=== PATIENT | female | born 1935 | race Caucasian/White ===

== ENCOUNTER 2018-09-03 14:36 | Outpatient (CLI) | payer MEDICARE ==
--- NOTE | 2018-09-03 16:29 | RAD ---
TWO VIEWS RIGHT HIP: 09/03/18 INDICATION: Fall with right sided hip pain and low back pain. FINDINGS: No acute fracture or subluxation is evident. 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 T here are vascular calcifications involving the right hemipelvis and right proximal thigh. There is di ffuse osteopenia. IMPRESSION: No acute osseous abnormality. POS: [facility]
--- NOTE | 2018-09-03 16:55 | RAD ---
LUMBAR SPINE THREE VIEWS: 09/03/18 INDICATION: History of fall with low back pain. FINDINGS: There is age indeterminate superior end plate compression fracture of L4 and T12. There is superior and inferior end plate compression abnormalities involving L1 of indeterminate chronicity. There is a dvanced disc degenerative disease at L2-3. There is moderate disc degenerative disease at L4-5. There is diffuse osteopenia. There is scattered vascular calcification. There is surgical clips in the rig ht upper quadrant may reflect sequela of prior cholecystectomy. IMPRESSION: 1. Age indeterminate compression abnormalities of L4, L1 and T12. Comparison with prior radiogr aphs may be helpful to evaluate for acuity. Alternatively, a bone scan may be helpful for additional characterization. 2. Moderate spondylosis of the lumbar spine. 3. Diffuse osteopenia. POS: [facility]
== END 2018-09-03 14:37 | disposition home or self-care (01) ==
LOC: SCSRAD 14:36
PROVIDERS: ATTEND Nurse Practitioner Family
DX: M54.5 Low back pain (principal); M47.816 Spondylosis without myelopathy or radiculopathy, lumbar region; W19.XXXA Unspecified fall, initial encounter; M85.80 Other specified disorders of bone density and structure, unspecified site
CPT/HCPCS: 72100

== ENCOUNTER 2018-10-02 14:31 | Outpatient (CLI) | payer MEDICARE ==
--- NOTE | 2018-10-02 15:56 | MRI ---
EXAM: MRI lumbar spine without contrast HISTORY: Recent fall with compression fracture seen on x-ray COMPARISON: Lumbar radiographs 09/20/2018 TECHNIQUE: Multiple planar multisequence MR images were obtained of the lumbar spine without contrast . FINDINGS: There is a compression fracture of L1 with approximately 50% height loss. This vertebral body demonst rates abnormal high T2 signal consistent with an acute fracture. Wedge compression deformity of the T12 and L4 vertebral bodies does not demonstrate high T2 signal in these fractures are likely chronic . Innumerable cysts are seen in the kidneys. The paraspinal soft tissues are unremarkable. The conus medullaris terminates normally at T12. T12/L1: A small disc osteophyte complex is seen. No posterior facet arthrosis. No central canal ute nosis. No neural foraminal stenosis L1/2: A small disc osteophyte complex is seen. No posterior facet arthrosis. Mild central canal ute nosis. Mild left neural foraminal stenosis L2/3: A small disc osteophyte complex is seen. No posterior facet arthrosis. Mild central canal ute nosis. Mild bilateral neural foraminal stenosis L3/4: A small disc osteophyte complex is seen. Mild bilateral posterior facet arthrosis. Mild centr al canal stenosis. Mild bilateral neural foraminal stenosis L4/5: A minimal disc osteophyte complex is seen. Moderate bilateral posterior facet arthrosis. No c entral canal stenosis. Mild bilateral neural foraminal stenosis L5/S1: No significant posterior bulge or protrusion. Moderate bilateral posterior facet arthrosis. No central canal stenosis. No neural foraminal stenosis IMPRESSION: 1. Acute L1 compression fracture as above 2. Degenerative changes of the lumbar spine as above.
== END 2018-10-02 14:32 | disposition home or self-care (01) ==
LOC: SCSMRI 14:31
PROVIDERS: ATTEND Nurse Practitioner Family
DX: S32.040A Wedge compression fracture of fourth lumbar vertebra, initial encounter for closed fracture (principal); S32.010A Wedge compression fracture of first lumbar vertebra, initial encounter for closed fracture; M47.816 Spondylosis without myelopathy or radiculopathy, lumbar region
CPT/HCPCS: 72148

== ENCOUNTER 2018-10-09 16:11 | Outpatient (CLI) | payer MEDICARE ==
--- NOTE | 2018-10-09 18:05 | CT ---
CT PELVIS: 10/09/18 INDICATION: Sacral insufficiency fracture, pain. FINDINGS: Subtle sclerosis does traverse the midline of the sacrum without significant displacement. The sacral neural foramina are grossly intact. No abnormal diastasis of sacroiliac joints. Mild osteophytosis o f each SI joint is present. There is incidental note of a moderate facet arthropathy of the lower lum bar spine. Chronic appearing end plate irregularity with associated gas vacuum phenomenon seen at L4 -5 level. IMPRESSION: Subtle sclerosis of the sacrum without displacement that could relate to a nondisplaced insufficiency fracture given the clinical concern. This may be further evaluated with bone scan. POS: [facility]
== END 2018-10-09 16:12 | disposition home or self-care (01) ==
LOC: SCSCT 16:11
PROVIDERS: ATTEND Specialist
DX: M84.48XA Pathological fracture, other site, initial encounter for fracture (principal); G95.89 Other specified diseases of spinal cord
CPT/HCPCS: 72192

== ENCOUNTER 2019-05-01 15:18 | Outpatient (CLI) | payer MEDICARE ==
--- NOTE | 2019-05-01 18:19 | RAD ---
THORACIC SPINE: 05/01/19 Three views. INDICATIONS: Back pain. COMPARISON: Comparison made to a thoracic spine films of 09/20/18. The prior exams described T12 and L1 fractures. There is now vertebroplasty changes at L1. There is m ild compression of the T12 vertebra which appears stable from prior exam with primarily central compr ession. There is mild anterior wedging of upper thoracic vertebrae at T7, T6 and T5 levels which appears stab le and physiologic. Very mild degenerative spurring. IMPRESSION: Mild central compression of T12 appears stable. Thoracic spine is otherwise unremarkable and unchange d. POS: [facility]
== END 2019-05-01 15:19 | disposition home or self-care (01) ==
LOC: SCSRAD 15:18
PROVIDERS: ATTEND Family Medicine
DX: M54.6 Pain in thoracic spine (principal)
CPT/HCPCS: 72072; 72100

== ENCOUNTER 2019-10-01 14:34 | Outpatient (CLI) | payer MEDICARE ==
--- NOTE | 2019-10-01 16:08 | RAD ---
LUMBAR SPINE TWO VIEWS: 10/01/19 HISTORY: Low back pain. Fell last week. COMPARISON: 08/12/19 FINDINGS/IMPRESSION: Vertebroplasty changes involving the compression fracture of L1 vertebral bodies again seen. Interim changes of vertebroplasty are noted at L3 and L5 levels. Compression fracture of L4 remains s table. No subluxation is seen. There are vascular calcifications. Compression of the superior end charm[place] te of T12 is stable. POS: [facility]
== END 2019-10-01 14:35 | disposition home or self-care (01) ==
LOC: SCSRAD 14:34
PROVIDERS: ATTEND Family Medicine
DX: M54.5 Low back pain (principal); S32.019A Unspecified fracture of first lumbar vertebra, initial encounter for closed fracture; I70.90 Unspecified atherosclerosis
CPT/HCPCS: 72100

== ENCOUNTER 2019-10-24 14:02 | Outpatient (CLI) | payer MEDICARE ==
--- NOTE | 2019-10-21 14:34 | CT ---
CT Pelvis WO Con History: Pelvic pain. Evaluate for sacral fracture Comparison: CT of the pelvis 2019 Findings: Faint sclerosis of S3 from healed fracture. Complete new transverse fracture of S4 with one cortex width anterior displacement. Along the inferior margin of S4 is another transversely oriented fracture with anterior displacement 4 mm. This is new. Cement within L3 and L5. Compression fracture L4 is similar. No SI joint widening. The femoral heads and necks are intact. Acetabulum are intact. No free fluid within the pelvis. Polycystic kidneys. High-grade vascular calcifications. Impression: Two new complete transverse oblique S4 fractures as described with anterior displacement of the inferior fracture approximately 4 mm.
--- NOTE | 2019-10-24 15:15 | MRI ---
MRI Lumbar Spine WO Con History: Pain. Fractures. Comparison: Radiograph 09/11/2019. Radiograph 08/12/2019. MRI 08/20/2019 Findings: Multicystic kidneys. Aortic contour is nonaneurysmal. Moderate bilateral symmetric paraspin al muscle atrophy. New inferior endplate compression deformity at T11 with 10% inferior endplate height loss. Similar ap pearance of the superior endplate compression deformity and anterior endplate deformity of T12 with minimal new inferior endplate edema. Unchanged fracture of L1 contains cement. New superior endplate compression deformity of L2 with 10% anterior height loss, 5% posterior height loss, and endplate compression of 20%. Progressive height loss of the L2/L3 disc space. The L3 fracture contains new cement. Similar height loss of L4. The L5 fracture contains new cement. There is no abnormal placement or extruded cement appreciated. Impression: 1. New inferior endplate compression fracture of T11 with 10% inferior endplate height loss. 2. New compressive edema of the inferior endplate of T12 with minimal height loss. 3. New superior endplate compression deformity of L2 with 10%anterior, 5% posterior and mid endplate compression 20%. 4. Progressive height loss of the L2/L3 disc space. 5. No extruded new cement within the L3 or L5 vertebral bodies.
== END 2019-10-24 14:03 | disposition home or self-care (01) ==
LOC: SCSCT 14:02
PROVIDERS: ATTEND Nurse Practitioner Family
DX: S32.010A Wedge compression fracture of first lumbar vertebra, initial encounter for closed fracture (principal); M53.3 Sacrococcygeal disorders, not elsewhere classified; S32.10XA Unspecified fracture of sacrum, initial encounter for closed fracture; S22.089A Unspecified fracture of T11-T12 vertebra, initial encounter for closed fracture; M43.8X6 Other specified deforming dorsopathies, lumbar region
CPT/HCPCS: 72148; 72192

== ENCOUNTER 2021-01-25 15:00 | Outpatient (CLI) | payer MEDICARE | END 2021-01-25 15:01 | disposition home or self-care (01) | LOC: SCSRAD 15:00 | PROVIDERS: ATTEND Nurse Practitioner Family | DX: M54.6 Pain in thoracic spine (principal) | CPT/HCPCS: 72072 ==

== ENCOUNTER 2021-03-10 11:38 | Observation (INO) | payer MEDICARE ==
[2021-03-10 12:47] LABS: Hemoglobin 13.2 g/dL (12.0-16.0); Mean Corpuscular HGB CONC 32.6 g/dL (32.0-36.0); Mean Corpuscular Hemoglobin 33.3 pg (27.0-31.0); Mean Platelet Volume 9.7 fL (7.4-10.4); Platelet Count 275 thou/uL (130-400); RBC Distribution Width 15.6 % (11.5-14.5); Red Blood Cell (RBC) Count 3.96 mill/uL (4.20-5.40); White Blood Cell (WBC) Count 11.5 thou/uL (4.8-10.8)
[2021-03-10 12:48] LABS: #Basophils 0.1 thou/uL (0.0-0.2); #Eosinphils 0.2 thou/uL (0.0-0.7); #Lymphocytes 1.1 thou/uL (1.20-3.40); #Monocytes 0.3 thou/uL (0.11-0.59); #Neutrophils 9.9 thou/uL (1.40-6.50); %Basophils 0.5 % (0.0-1.0); %Eosinophils 1.9 % (0.0-10.0); %Lymphocytes 9.2 % (21.0-51.0); %Monocytes 2.4 % (0.0-10.0); INR-International Normal Ratio 1.2; Platelet Morphology Comment Appears Adequate; Prothrombin Time 15.3 sec (12.0-14.7)
[2021-03-10 12:49] LABS: PTT 36.5 sec (22.9-36.1)
[2021-03-10 13:00] LABS: ALT (SGPT) 8 U/L (8-55); AST (SGOT) 12 U/L (5-34); Albumin 4.1 g/dL (3.4-4.8); Alkaline Phosphatase 89 U/L (40-110); Anion Gap 12 mmol/L (10-20); BUN (Urea Nitrogen) 20 mg/dL (9.8-20.1); Bilirubin, Total 0.8 mg/dL (0.2-1.2); Calc. Creatinine Clearance 0 mL/min (70-130); Carbon Dioxide 25 mmol/L (23-31); Chloride 106 mmol/L (98-107); Globulin 3.4 g/dL (2.4-3.5); Glucose 98 mg/dL (83-110); Lipase 34 U/L (8-78); Protein, Total 7.5 g/dL (5.8-8.1); Sodium 139 mmol/L (136-145)
[2021-03-10 15:02] LABS: Bacteria/HPF 1+ HPF (None Seen); Bilirubin Negative (Negative); Blood, Urine 3+ (Negative); Clarity Turbid (Clear); Glucose, Urine (Dipstick) Normal (Negative); Ketone, Urine Negative (Negative); Leukocyte 500 Leu/uL (Negative); Nitrite 1+ (Negative); Protein, Urine (Dipstick) 100 mg/dL (Neg-Trace); RBC/HPF 21-50 HPF (0-3); Specific Gravity, Urine 1.016 (1.002-1.036); Squamous Epithelial 0-3 HPF (0-3); Urobilinogen Normal mg/dL (Less than 2); WBC/HPF Greater than 50 HPF (0-3)
[2021-03-10] MEDS ORDERED: Acetaminophen 325 MG TAB PO PRN (18:06)
[2021-03-10 20:16] LABS: Hemoglobin 13.5 g/dL (12.0-16.0)
[2021-03-10] MEDS: Amlodipine 5 MG TAB PO SCH (20:38)
[2021-03-10] MEDS: Metoprolol Tartrate 25 MG TAB PO SCH (20:39)
[2021-03-10] MEDS ORDERED: Latanoprost 0.005% Ophth Soln 2.5 ml Bottle EA EYE SCH (21:00)
[2021-03-10] MEDS ORDERED: Atorvastatin Calcium 40 MG TAB PO SCH (21:00)
[2021-03-10 23:43] VITALS: BMI 24.6
[2021-03-11 07:00] LABS: #Eosinphils 0.2 thou/uL (0.0-0.7); #Lymphocytes 1.4 thou/uL (1.20-3.40); #Monocytes 0.4 thou/uL (0.11-0.59); #Neutrophils 7.3 thou/uL (1.40-6.50); %Basophils 0.3 % (0.0-1.0); %Eosinophils 2.3 % (0.0-10.0); %Lymphocytes 14.6 % (21.0-51.0); %Monocytes 4.2 % (0.0-10.0); %Neutrophils 78.6 % (42.0-75.0); Hemoglobin 12.9 g/dL (12.0-16.0); Mean Corpuscular HGB CONC 32.1 g/dL (32.0-36.0); Mean Platelet Volume 9.8 fL (7.4-10.4); Platelet Count 270 thou/uL (130-400); RBC Distribution Width 15.6 % (11.5-14.5); White Blood Cell (WBC) Count 9.3 thou/uL (4.8-10.8)
[2021-03-11 07:36] VITALS: TEMP 97.9
[2021-03-11] MEDS: Amlodipine 5 MG TAB PO SCH (08:58)
[2021-03-11] MEDS: Metoprolol Tartrate 25 MG TAB PO SCH (08:59)
[2021-03-11] MEDS ORDERED: PARoxetine 20 MG TAB PO SCH (09:00)
[2021-03-11 12:08] VITALS: BP 122/56
[2021-03-11 12:08] LABS: SARS-CoV-2 PCR by NAA Not Detected (NotDetected)
== END 2021-03-11 14:20 | disposition home or self-care (01) ==
LOC: ERS 11:38 → T4-B 15:26
PROVIDERS: ADMIT Internal Medicine; ATTEND Internal Medicine
DX: K62.5 Hemorrhage of anus and rectum (principal); R82.71 Bacteriuria; I12.9 Hypertensive chronic kidney disease with stage 1 through stage 4 chronic kidney disease, or unspecified chronic kidney disease; N18.30 Chronic kidney disease, stage 3 unspecified; E78.5 Hyperlipidemia, unspecified; D72.829 Elevated white blood cell count, unspecified; I69.351 Hemiplegia and hemiparesis following cerebral infarction affecting right dominant side; F17.210 Nicotine dependence, cigarettes, uncomplicated; Z86.2 Personal history of diseases of the blood and blood-forming organs and certain disorders involving the immune mechanism; Z79.83 Long term (current) use of bisphosphonates; Z79.899 Other long term (current) drug therapy; Z20.822 Contact with and (suspected) exposure to COVID-19
CPT/HCPCS: 80053; 83690; 85018; 85025 ×2; 85610; 85730; 86850; 86900; 86901; 87077; 87086; 87186; 99285; U0003; U0005; 36415; 81003; 81015; 82274; G0378

== ENCOUNTER 2021-08-11 12:03 | Inpatient (IN) | payer MEDICARE ==
[2021-08-11 12:47] LABS: Hemoglobin 14.7 g/dL (12.0-16.0); Mean Corpuscular HGB CONC 29.8 g/dL (32.0-36.0); Mean Corpuscular Hemoglobin 27.5 pg (27.0-31.0); Mean Platelet Volume 10.2 fL (7.4-10.4); Platelet Count 295 thou/uL (130-400); RBC Distribution Width 19.7 % (11.5-14.5); Red Blood Cell (RBC) Count 5.36 mill/uL (4.20-5.40); White Blood Cell (WBC) Count 29.2 thou/uL (4.8-10.8)
[2021-08-11 13:07] LABS: ALT (SGPT) Less than 7 U/L (8-55); AST (SGOT) 14 U/L (5-34); Albumin 4.1 g/dL (3.4-4.8); Alkaline Phosphatase 114 U/L (40-110); Anion Gap 15 mmol/L (10-20); BUN (Urea Nitrogen) 27 mg/dL (9.8-20.1); Bilirubin, Total 1.5 mg/dL (0.2-1.2); Calc. Creatinine Clearance 0 mL/min (70-130); Calcium 8.8 mg/dL (7.8-10.44); Carbon Dioxide 20 mmol/L (23-31); Chloride 105 mmol/L (98-107); Globulin 3.6 g/dL (2.4-3.5); Glucose 121 mg/dL (83-110); Lipase 11 U/L (8-78); Potassium 4.4 mmol/L (3.5-5.1); Protein, Total 7.7 g/dL (5.8-8.1); Sodium 136 mmol/L (136-145)
[2021-08-11 13:19] LABS: Band 13 % (5-11); Lymphocytes 2 % (21-51); MDiff Complete? YES; Neutrophil 85 % (42-75); Platelet Morphology Comment Appears Adequate; Polychromasia SLIGHT = 2-3 cells (100X) (0-2/hpf)
[2021-08-11] MEDS ORDERED: Nitroglycerin 2% Ointment 1 INCH/1 GM Packet ONE (13:22)
[2021-08-11] MEDS ORDERED: Aspirin Chewable 81 MG TAB ONE (13:22)
[2021-08-11 13:25] LABS: CKMB 0.7 ng/mL (0-6.6)
[2021-08-11] MEDS ORDERED: cefTRIAXone\\ROCEPHIN 2 GM VIAL ONE (15:08)
[2021-08-11 16:01] LABS: INR-International Normal Ratio 1.3; PTT 41.9 sec (22.9-36.1); Prothrombin Time 16.3 sec (12.0-14.7)
[2021-08-11 16:12] LABS: Troponin I 0.036 ng/mL (< 0.028)
[2021-08-11] MEDS ORDERED: Ondansetron ODT 4 MG TAB PO PRN (16:40)
[2021-08-11] MEDS ORDERED: Ondansetron PF 4 MG/2 ML Vial IVP PRN (16:40)
[2021-08-11] MEDS ORDERED: Acetaminophen 325 MG TAB PO PRN (16:40)
[2021-08-11] MEDS ORDERED: Senokot S 8.6-50 MG TAB PO PRN (16:40)
[2021-08-11] MEDS ORDERED: Sodium Chloride 0.9% 1,000 ML IV SCH (16:45)
[2021-08-11] MEDS ORDERED: Nitroglycerin 0.4 MG TAB (25 Tab Bottle) SL PRN (16:47)
[2021-08-11 16:51] LABS: Lactic Acid 2.2 mmol/L (0.5-2.2)
[2021-08-11 17:50] VITALS: BMI 23.3
[2021-08-11 18:51] LABS: Troponin I 0.036 ng/mL (< 0.028)
[2021-08-11 19:52] LABS: Bilirubin Negative (Negative); Blood, Urine 2+ (Negative); Clarity Turbid (Clear); Glucose, Urine (Dipstick) Normal (Negative); Ketone, Urine Negative (Negative); Leukocyte 500 Leu/uL (Negative); Nitrite Negative (Negative); Protein, Urine (Dipstick) 100 mg/dL (Neg-Trace); RBC/HPF 21-50 HPF (0-3); Specific Gravity, Urine 1.022 (1.002-1.036); Squamous Epithelial 0-3 HPF (0-3); Urobilinogen Normal mg/dL (Less than 2); WBC/HPF Greater than 50 HPF (0-3); pH, Urine 5.5 (5.0-9.0)
[2021-08-11 19:56] LABS: Bacteria/HPF 1+ HPF (None Seen)
[2021-08-11 19:57] LABS: Urine Culture Reflex Yes Yes
[2021-08-11 20:30] LABS: SARS-CoV-2 NAA Rapid Test Not Detected (NotDetected)
[2021-08-11] MEDS: Amlodipine 5 MG TAB PO SCH (21:38)
[2021-08-11] MEDS: Atorvastatin Calcium 40 MG TAB PO SCH (21:38)
[2021-08-11] MEDS: Famotidine 20 MG TAB PO SCH (21:38)
[2021-08-11] MEDS: Metoprolol Tartrate 25 MG TAB PO SCH (21:38)
[2021-08-11] MEDS: Apixaban 2.5 MG TAB PO SCH (21:38)
[2021-08-11] MEDS: Latanoprost 0.005% Ophth Soln 2.5 ml Bottle EA EYE SCH (21:38)
[2021-08-11] MEDS: Nicotine 14 MG PATCH TD SCH (21:57)
[2021-08-12 00:22] LABS: Troponin I 0.026 ng/mL (< 0.028)
[2021-08-12 04:35] LABS: ALT (SGPT) Less than 7 U/L (8-55); AST (SGOT) 12 U/L (5-34); Albumin 3.5 g/dL (3.4-4.8); Alkaline Phosphatase 88 U/L (40-110); Anion Gap 12 mmol/L (10-20); BUN (Urea Nitrogen) 30 mg/dL (9.8-20.1); Bilirubin, Total 0.5 mg/dL (0.2-1.2); Calc. Creatinine Clearance 27 mL/min (70-130); Calcium 8.3 mg/dL (7.8-10.44); Carbon Dioxide 24 mmol/L (23-31); Chloride 105 mmol/L (98-107); Glucose 91 mg/dL (83-110); Potassium 3.9 mmol/L (3.5-5.1); Protein, Total 6.5 g/dL (5.8-8.1); Sodium 137 mmol/L (136-145)
[2021-08-12 04:36] LABS: #Basophils 0.1 thou/uL (0.0-0.2); #Eosinphils 0.6 thou/uL (0.0-0.7); #Lymphocytes 0.8 thou/uL (1.20-3.40); #Monocytes 0.4 thou/uL (0.11-0.59); #Neutrophils 13.2 thou/uL (1.40-6.50); %Basophils 0.5 % (0.0-1.0); %Eosinophils 3.8 % (0.0-10.0); %Lymphocytes 5.4 % (21.0-51.0); %Monocytes 2.8 % (0.0-10.0); %Neutrophils 87.5 % (42.0-75.0); Hemoglobin 12.4 g/dL (12.0-16.0); Mean Corpuscular HGB CONC 30.1 g/dL (32.0-36.0); Mean Corpuscular Hemoglobin 28.2 pg (27.0-31.0); Mean Corpuscular Volume 93.5 fL (78.0-98.0); Mean Platelet Volume 10.2 fL (7.4-10.4); Platelet Count 300 thou/uL (130-400); RBC Distribution Width 19.3 % (11.5-14.5); Red Blood Cell (RBC) Count 4.42 mill/uL (4.20-5.40); White Blood Cell (WBC) Count 15.1 thou/uL (4.8-10.8)
[2021-08-12] MEDS: Metoprolol Tartrate 25 MG TAB PO SCH ×2 (09:23→21:04)
[2021-08-12] MEDS: Apixaban 2.5 MG TAB PO SCH ×2 (09:23→21:04)
[2021-08-12] MEDS: Amlodipine 5 MG TAB PO SCH ×2 (09:23→21:04)
[2021-08-12 13:15] LABS: Hemoglobin A1c 5.2 % (4.0-6.0)
[2021-08-12 13:34] LABS: Cardiac Risk 2.1 (Less than 4.5)
[2021-08-12] MEDS: cefTRIAXone\\ROCEPHIN 1 GM in Sodium Chloride 0.9% 100 ML IVPB SCH (16:07)
[2021-08-12] MEDS: hydrALAZINE 25 MG TAB PO SCH ×3 (16:07→21:14)
[2021-08-12] MEDS: Nicotine 14 MG PATCH TD SCH ×2 (16:08→21:04)
[2021-08-12] MEDS: Atorvastatin Calcium 40 MG TAB PO SCH (21:03)
[2021-08-12] MEDS: Famotidine 20 MG TAB PO SCH (21:04)
[2021-08-12] MEDS: Latanoprost 0.005% Ophth Soln 2.5 ml Bottle EA EYE SCH (21:08)
[2021-08-13 04:21] LABS: Hemoglobin 13.5 g/dL (12.0-16.0); Mean Corpuscular HGB CONC 30.2 g/dL (32.0-36.0); Mean Corpuscular Hemoglobin 28.1 pg (27.0-31.0); Mean Corpuscular Volume 93.1 fL (78.0-98.0); Mean Platelet Volume 10.1 fL (7.4-10.4); Platelet Count 301 thou/uL (130-400); RBC Distribution Width 19.3 % (11.5-14.5); Red Blood Cell (RBC) Count 4.81 mill/uL (4.20-5.40)
[2021-08-13 04:38] LABS: Anion Gap 13 mmol/L (10-20); BUN (Urea Nitrogen) 26 mg/dL (9.8-20.1); Calc. Creatinine Clearance 32 mL/min (70-130); Calcium 8.6 mg/dL (7.8-10.44); Carbon Dioxide 21 mmol/L (23-31); Chloride 108 mmol/L (98-107); Glucose 83 mg/dL (83-110); Potassium 4.3 mmol/L (3.5-5.1); Sodium 138 mmol/L (136-145)
[2021-08-13 04:40] LABS: #Basophils 0.1 thou/uL (0.0-0.2); #Eosinphils 0.9 thou/uL (0.0-0.7); #Lymphocytes 1.5 thou/uL (1.20-3.40); #Monocytes 0.3 thou/uL (0.11-0.59); #Neutrophils 10.2 thou/uL (1.40-6.50); %Basophils 0.4 % (0.0-1.0); %Eosinophils 6.7 % (0.0-10.0); %Lymphocytes 11.4 % (21.0-51.0); %Monocytes 2.6 % (0.0-10.0); Large Platelets SLIGHT; MDiff Complete? YES; Platelet Morphology Comment Appears Adequate
[2021-08-13] MEDS ORDERED: Regadenoson 0.4 MG/5 ML SYRINGE ONE (09:20)
[2021-08-13] MEDS: Apixaban 2.5 MG TAB PO SCH ×2 (16:02→20:52)
[2021-08-13] MEDS: Hydroxyurea 500 MG CAP PO SCH (16:02)
[2021-08-13] MEDS: PARoxetine 20 MG TAB PO SCH (16:02)
[2021-08-13] MEDS: Amlodipine 5 MG TAB PO SCH ×2 (16:02→20:53)
[2021-08-13] MEDS: hydrALAZINE 25 MG TAB PO SCH ×3 (16:03→20:53)
[2021-08-13] MEDS: Metoprolol Tartrate 25 MG TAB PO SCH ×2 (16:03→20:53)
[2021-08-13] MEDS: Amiodarone 200 MG TAB PO SCH (16:09)
[2021-08-13] MEDS: cefTRIAXone\\ROCEPHIN 1 GM in Sodium Chloride 0.9% 100 ML IVPB SCH (16:10)
[2021-08-13] MEDS: Famotidine 20 MG TAB PO SCH (20:52)
[2021-08-13] MEDS: Atorvastatin Calcium 40 MG TAB PO SCH (20:53)
[2021-08-13] MEDS: Nicotine 14 MG PATCH TD SCH (20:53)
[2021-08-13] MEDS: Latanoprost 0.005% Ophth Soln 2.5 ml Bottle EA EYE SCH (20:57)
[2021-08-14 04:46] LABS: Anion Gap 12 mmol/L (10-20); BUN (Urea Nitrogen) 24 mg/dL (9.8-20.1); Calc. Creatinine Clearance 32 mL/min (70-130); Calcium 8.3 mg/dL (7.8-10.44); Carbon Dioxide 21 mmol/L (23-31); Chloride 107 mmol/L (98-107); Glucose 84 mg/dL (83-110); Potassium 4.2 mmol/L (3.5-5.1); Sodium 136 mmol/L (136-145)
[2021-08-14 05:21] LABS: #Basophils 0.1 thou/uL (0.0-0.2); #Lymphocytes 1.4 thou/uL (1.20-3.40); #Monocytes 0.3 thou/uL (0.11-0.59); %Basophils 0.5 % (0.0-1.0); %Eosinophils 8.2 % (0.0-10.0); %Lymphocytes 11.6 % (21.0-51.0); %Monocytes 2.4 % (0.0-10.0); %Neutrophils 77.4 % (42.0-75.0); Hemoglobin 12.5 g/dL (12.0-16.0); Large Platelets SLIGHT; MDiff Complete? YES; Mean Corpuscular HGB CONC 30.5 g/dL (32.0-36.0); Mean Corpuscular Hemoglobin 28.1 pg (27.0-31.0); Mean Corpuscular Volume 92.3 fL (78.0-98.0); Mean Platelet Volume 10.2 fL (7.4-10.4); Platelet Count 348 thou/uL (130-400); Platelet Morphology Comment Appears Adequate; RBC Distribution Width 19.3 % (11.5-14.5); Red Blood Cell (RBC) Count 4.46 mill/uL (4.20-5.40); White Blood Cell (WBC) Count 11.7 thou/uL (4.8-10.8)
[2021-08-14] MEDS: PARoxetine 20 MG TAB PO SCH (08:21)
[2021-08-14] MEDS: Apixaban 2.5 MG TAB PO SCH (08:22)
[2021-08-14] MEDS: Hydroxyurea 500 MG CAP PO SCH (08:22)
[2021-08-14] MEDS: Amlodipine 5 MG TAB PO SCH (08:22)
[2021-08-14] MEDS: hydrALAZINE 25 MG TAB PO SCH (08:22)
[2021-08-14] MEDS: Amiodarone 200 MG TAB PO SCH (08:22)
[2021-08-14 11:51] VITALS: TEMP 97.9
[2021-08-14 12:08] VITALS: BP 147/65
== END 2021-08-14 14:14 | disposition home or self-care (01) | DRG 872 ==
LOC: ERS 12:03 → 2NO 15:17 → OBSVTOIN 08-12 10:48
PROVIDERS: ADMIT Internal Medicine; ATTEND Internal Medicine
DX: A41.9 Sepsis, unspecified organism (principal); Z66 Do not resuscitate; Z20.822 Contact with and (suspected) exposure to COVID-19; N17.9 Acute kidney failure, unspecified; I48.20 Chronic atrial fibrillation, unspecified; I69.359 Hemiplegia and hemiparesis following cerebral infarction affecting unspecified side; N30.00 Acute cystitis without hematuria; N18.30 Chronic kidney disease, stage 3 unspecified; R00.1 Bradycardia, unspecified; F32.A Depression, unspecified; E78.5 Hyperlipidemia, unspecified; Z60.2 Problems related to living alone; F17.210 Nicotine dependence, cigarettes, uncomplicated; R77.8 Other specified abnormalities of plasma proteins; I12.9 Hypertensive chronic kidney disease with stage 1 through stage 4 chronic kidney disease, or unspecified chronic kidney disease; R74.8 Abnormal levels of other serum enzymes; D45 Polycythemia vera; M81.0 Age-related osteoporosis without current pathological fracture; R07.89 Other chest pain; Z79.01 Long term (current) use of anticoagulants; Z79.899 Other long term (current) drug therapy; Z85.828 Personal history of other malignant neoplasm of skin; Z98.890 Other specified postprocedural states; Z80.0 Family history of malignant neoplasm of digestive organs; Z71.6 Tobacco abuse counseling; Z90.49 Acquired absence of other specified parts of digestive tract
CPT/HCPCS: 36415; 51701; 51798; 71045; 78452; 80048; 80053; 80061; 81001; 82553; 83036; 83605; 83690; 83735; 83880; 84484; 85025; 85610; 85730; 87040; 87086; 93005; 93017; 93306; 94760; 96365; A9500; G0378; J0696; J2785; J3490; Q0162